=== PATIENT | male | born 1995 | race Caucasian/White ===

== ENCOUNTER 2021-05-31 15:10 | Emergency (ER) | payer OTHER ==
--- NOTE | 2021-05-31 15:29 | EDM.PDOC ---
ED HPI GENERAL MEDICAL PROBLEM - General Chief Complaint: General Stated Complaint: GOUT Time Seen by Provider: 05/31/21 15:16 Source of Information: Reports: Patient History Limitations: Reports: No Limitations - History of Present Illness INITIAL COMMENTS - FREE TEXT/NARRATIVE: HISTORY AND PHYSICAL: History of present illness: Patient is a 25-year-old male who presents to the emergency room with concerns of pain to his left great toe. On 05/27/2021 he was seen by his primary care provider for a gout flare and given a dose of colchicine. He states he had some leftover indomethacin in which she is taking but continues to have discomfort. He states it is getting better but wanted it evaluated as he felt there were additional medications that would help. Denies any injury, trauma or falls. Diagnosed with gout 2 to 3 years ago, has a flare once or twice a year. Patient denies any fever, chills, headache, change in vision, syncope or near syncope. Denies any chest pain, back pain, shortness of breath or cough. Denies any GI or symptoms. Review of systems: As per history of present illness and below otherwise all systems reviewed and negative. Past medical history: As per history of present illness and as reviewed below otherwise noncontributory. Surgical history: As per history of present illness and as reviewed below otherwise noncontributory. Social history: See social history for further information Family history: As per history of present illness and as reviewed below otherwise noncontributory. Physical exam: General: Well developed and well nourished. Alert and orientated x 3. Nontoxic in appearance and in no acute distress. Vital signs are stable and have been reviewed by me. Nursing notes were reviewed. HEENT: Atraumatic, normocephalic, pupils equal and reactive bilaterally, negative for conjunctival pallor or scleral icterus, mucous membranes moist, trachea midline. No drooling or trismus noted. No meningeal signs. No hot potato voice noted. Lungs: Clear to auscultation bilaterally. No wheezes, rales, or rhonchi. Chest nontender. Normal work of breathing, no accessory muscles used. Heart: S1S2, regular rate and rhythm without overt murmur, gallops, or rubs. No JVD. No peripheral edema Abdomen: Soft, obese, nontender. Skin: Intact, warm, dry. No lesions or rashes noted. Hematologic: No petechiae or purpra. Mucosa appropriate color and normal nail bed color and refill. Extremities: Atraumatic, moves all extremities per self without difficulty or deficits. Tenderness with palpation at the base of the left great toe. Negative for cords or calf pain. Cap refill less than 3 seconds. Strong pedal and pretibial pulses. Neurovascular unremarkable. Neuro: Awake, alert, oriented. Cranial nerves II through XII unremarkable. Cerebellum unremarkable. Motor and sensory unremarkable throughout. Exam nonfocal. Psychiatric: Mood and affect are appropriate. Normal thought process. Answering questions appropriately. Notes: *This patient was seen and evaluated during the 2019 SARS-CoV-2 novel coronavirus pandemic period. Community viral transmission is ongoing at time of this encounter and the emergency department is operating under pandemic response procedures. Patient is a 25-year-old male who presents to the emergency room with complaints of a gout flare. He states he was diagnosed with gout 3 years ago, states he seen his primary care on and given colchicine. He did have some leftover indomethacin and states it is feeling better but felt there was additional medications he could take to help. He denies any injury, trauma or falls. He declines wanting any diagnostics done at this time. Symptoms are consistent with gout. Due to patient being new in town I have given him follow-up care/local clinics to establish care with. I have talked with the patient about today's findings, in addition to providing specific details for plan of care. Reassessment at the time of disposition demonstrates that the patient is in no acute distress. The patient is stable for discharge, counseling was provided and we discussed in great detail signs and symptoms that would prompt them to return to the Emergency Department. Medication, follow up and supportive care measures were reviewed and discussed. Voices understanding and is agreeable to plan of care. Denies any further questions or concerns at this time. Diagnostics: None Therapeutics: Prednisone, lidocaine Prescription: Prednisone Impression: Gout Plan: 1. You were evaluated today on an emergent basis. Keep taking your indomethacin as needed and directed. Take the steroid as directed. 2. Tylenol as needed for pain and fever management. 3. We encourage you to follow up with your primary care provider and/or recomm ended specialist in the next few days for re-evaluation and further care/management. 4. If your symptoms should worsen, new symptoms develop or any of the signs and symptoms we discussed should arise please return to the emergency room or call 911 (if needed). Definitive disposition and diagnosis as appropriate pending reevaluation and review of above. L great tore Pain Score (Numeric/FACES): 3 - Related Data Allergies Allergy/AdvReac Type Severity Reaction Status Date / Time No Known Allergies Allergy Verified 05/31/21 15:51 Home Meds: Home Meds Indomethacin 50 mg PO DAILY 05/31/21 [History] predniSONE [Prednisone] 30 mg PO DAILY 5 Days #15 tablet 05/31/21 [Rx] ED ROS GENERAL - Review of Systems Review Of Systems: Comprehensive ROS is negative, except as noted in HPI. ED EXAM, GENERAL - Physical Exam Exam: See Below (See dictation) Course - Vital Signs Last Recorded V/S: Last Vital Signs Temp 97.1 F 05/31/21 15:51 Pulse 69 05/31/21 15:51 Resp 18 05/31/21 15:51 BP 144/86 H 05/31/21 15:51 Pulse Ox 99 05/31/21 15:51 - Orders/Labs/Meds Meds: Medications Discontinued Medications Generic Name Dose Route Start Last Admin Trade Name Freq PRN Reason Stop Dose Admin Ketorolac Tromethamine 60 mg 05/31/21 15:47 Ketorolac 60 Mg/2 Ml Sdv IM 05/31/21 15:48 ONETIME ONE Prednisone 40 mg 05/31/21 15:47 Prednisone 20 Mg Tab PO 05/31/21 15:48 NOW STA Departure - Departure Time of Disposition: 15:46 Disposition: Home, Self-Care 01 Clinical Impression: Gout Qualifiers: Gout site: toe Gout etiology: unspecified cause Chronicity: acute Laterality: left Qualified Code(s): M10.9 - Gout, unspecified - Discharge Information Prescriptions: predniSONE [Prednisone] 30 mg PO DAILY 5 Days #15 tablet Instructions: Gout, [id number] Forms: ED Department Discharge Additional Instructions: The following information is given to patients seen in the emergency department who are being discharged to home. This information is to outline your options for follow-up care. We provide all patients seen in our emergency department with a follow-up referral. The need for follow-up, as well as the timing and circumstances, are variable depending upon the specifics of your emergency department visit. If you don't have a primary care physician on staff, we will provide you with a referral. We always advise you to contact your personal physician following an emergency department visit to inform them of the circumstance of the visit and for follow-up with them and/or the need for any referrals to a consulting specialist. The emergency department will also refer you to a specialist when appropriate. This referral assures that you have the opportunity for follow-up care with a specialist. All of these measure are taken in an effort to provide you with optimal care, which includes your follow-up. Under all circumstances we always encourage you to contact your private physician who remains a resource for coordinating your care. When calling for follow-up care, please make the office aware that this follow-up is from your recent emergency room visit. If for any reason you are refused follow-up, please contact the [facility] Emergency Department at and asked to speak to the emergency department charge nurse. [facility] [address] [place] [id number] [address] Thank you for choosing the [facility] emergency department in [place] for your medical needs today. It was a pleasure caring for you. Today you were seen in the emergency department for gout 1. You were evaluated today on an emergent basis. Keep taking your indomethacin as needed and directed. Take the steroid as directed. 2. Tylenol as needed for pain and fever management. 3. We encourage you to follow up with your primary care provider and/or recommended specialist in the next few days for re-evaluation and further care/management. 4. If your symptoms should worsen, new symptoms develop or any of the signs and symptoms we discussed should arise please return to the emergency room or call 911 (if needed). Sepsis Event Note (ED) - Focused Exam Vital Signs: Vital Signs Temp Pulse Resp BP Pulse Ox 05/31/21 15:51 97.1 F 69 18 144/86 H 99
[2021-05-31] MEDS ORDERED: Ketorolac 60 MG/2 ML SDV IM ONE (15:47)
[2021-05-31] MEDS ORDERED: predniSONE 20 MG Tab PO STA (15:47)
== END 2021-05-31 16:42 | disposition home or self-care (01) ==
LOC: MW.ED 15:10
DX: M10.9 Gout, unspecified (principal)
CPT/HCPCS: 96372; 99283; A9270; J1885

== ENCOUNTER 2023-10-13 15:31 | Emergency (ER) | payer SELFPAY | END 2023-10-13 16:37 | disposition home or self-care (01) | LOC: MW.ED 15:31 | DX: M10.9 Gout, unspecified (principal) | CPT/HCPCS: 99283 ==

== ENCOUNTER 2023-11-15 21:59 | Emergency (ER) | payer BC ==
[2023-11-15] MEDS: Indomethacin 25 MG Cap PO ONE (23:26)
== END 2023-11-15 23:40 | disposition home or self-care (01) ==
LOC: MW.ED 21:59
DX: M25.571 Pain in right ankle and joints of right foot (principal); M10.9 Gout, unspecified
CPT/HCPCS: 99283; A9270

== ENCOUNTER 2024-03-30 16:48 | Emergency (ER) | payer BC ==
[2024-03-30] MEDS: traMADol 50 MG Tab PO STA (17:45)
== END 2024-03-30 19:23 | disposition home or self-care (01) ==
LOC: MW.ED 16:48
DX: M1A.9XX0 Chronic gout, unspecified, without tophus (tophi) (principal); Z75.8 Other problems related to medical facilities and other health care
CPT/HCPCS: 73610; 73630; 99283; A9270

== ENCOUNTER 2024-06-08 11:11 | Emergency (ER) | payer BC ==
[2024-06-08] MEDS: Ketorolac 30 MG/ML SDV IM ONE (12:42)
[2024-06-08] MEDS: Orphenadrine 60 MG/2 ML Inj IM ONE (12:43)
[2024-06-08 12:50] LABS: BILIRUBIN,URINE NEGATIVE (NEGATIVE); COLOR,URINE YELLOW; GLUCOSE,URINE NEGATIVE (NEGATIVE); KETONES,URINE NEGATIVE (NEGATIVE); LEUKOCYTE ESTERASE,URINE NEGATIVE (NEGATIVE); NITRITE,URINE NEGATIVE (NEGATIVE); OCCULT BLOOD,URINE TRACE-INTACT (NEGATIVE); PROTEIN,URINE 100 mg/dL (NEGATIVE); UROBILINOGEN,URINE 0.2 EU/dL (<2.0)
[2024-06-08 12:51] LABS: APPEARANCE,URINE HAZY
[2024-06-08 12:56] LABS: BACTERIA,URINE FEW (NEGATIVE); EPITHELIAL CELLS,URINE NOT SEEN (NONE-FEW); MUCUS,URINE MODERATE (NONE-MOD); WBC,URINE 0-1 (0-5/HPF)
== END 2024-06-08 14:57 | disposition home or self-care (01) ==
LOC: MW.ED 11:11
DX: S39.012A Strain of muscle, fascia and tendon of lower back, initial encounter (principal); Z75.8 Other problems related to medical facilities and other health care; X58.XXXA Exposure to other specified factors, initial encounter
CPT/HCPCS: 74176; 81001; 96372; 99284; J1885; J2360; 99283

== ENCOUNTER 2024-06-29 19:20 | Emergency (ER) | payer BC ==
[2024-06-29] MEDS: Acetaminophen 500 MG Tab PO ONE (20:05)
== END 2024-06-29 20:15 | disposition left against medical advice (07) ==
LOC: MW.ED 19:20
DX: M25.562 Pain in left knee (principal); Z79.899 Other long term (current) drug therapy; Z75.8 Other problems related to medical facilities and other health care
CPT/HCPCS: 99283

== ENCOUNTER 2024-10-04 23:07 | Emergency (ER) | payer BC | END 2024-10-05 02:20 | disposition home or self-care (01) | LOC: MW.ED 23:07 | DX: J40 Bronchitis, not specified as acute or chronic (principal); Z79.899 Other long term (current) drug therapy | CPT/HCPCS: 71045; 71045-26; 87428-QW; 99285 ==

== ENCOUNTER 2025-02-23 23:13 | Emergency (ER) | payer BC | END 2025-02-24 00:04 | disposition home or self-care (01) | LOC: MW.ED 23:13 | DX: T18.128A Food in esophagus causing other injury, initial encounter (principal); K22.2 Esophageal obstruction; W44.8XXA Other foreign body entering into or through a natural orifice, initial encounter | CPT/HCPCS: 99282; 99283 ==